=== PATIENT | female | born 1955 | race Caucasian/White ===

== ENCOUNTER 2020-10-30 15:52 | Outpatient (REF) | payer SELFPAY ==
[2020-10-30 22:11] LABS: ALT 31 U/L (14-59); AST 23 U/L (15-37); Albumin 4.3 g/dL (3.4-5.0); Alkaline Phosphatase 104 U/L (46-116); Anion Gap 10.8 mmol/L (3-11); BUN 8 mg/dL (7-18); Bilirubin, Total 1.1 mg/dL (0.2-1.0); CO2 29.2 mmol/L (21.0-32.0); CREATININE 0.7 mg/dL (0.55-1.02); Calcium 9.5 mg/dL (8.5-10.1); Calculated LDL 129 mg/dL (<100); Chloride 99 mmol/L (98-107); Cholesterol 228 mg/dL (<200); Glucose 106 mg/dL (74-106); HDL Cholesterol 85 mg/dL (40-60); Potassium 3.8 mmol/L (3.5-5.1); Sodium 139 mmol/L (136-145); Total Protein 7.3 g/dL (6.4-8.2); Triglyceride 72 mg/dL (<150)
[2020-10-30 22:18] LABS: COMMENT (LAB VIEW ONLY) 54.84 mg/dL; Microalb ug/mg Crea 10.8 ug/mg Cr
[2020-11-01 11:22] LABS: Hepatitis C Ab w Rflx HCV PCR Negative (Negative)
[2020-11-01 14:13] LABS: HIV-1/2 Ag & Ab Screen Negative (Negative)
== END 2020-10-30 15:53 | disposition home or self-care (01) ==
LOC: NCHCN 15:52
PROVIDERS: Visit Provider Nurse Practitioner Family
DX: I10 Essential (primary) hypertension (principal); R94.5 Abnormal results of liver function studies; Z11.4 Encounter for screening for human immunodeficiency virus [HIV]; Z11.59 Encounter for screening for other viral diseases
CPT/HCPCS: 80053; 80061; 86803; 87389; 82043; 82570

== ENCOUNTER 2020-11-19 09:40 | Outpatient (REF) | payer OTHER, SELFPAY ==
--- NOTE | 2020-11-19 08:30 | PAPFT_PTH ---
PATIENT: Oma Simmonsecca Shantell LOC: [facility]#:[id number] AGE/SX: 65/F ROOM: RE11/19/[address]: Ondina Sandy : 1955 BED: DIS: 11/19/2020 SPEC #: [id number] RECD: 11/19/20 16:18 STATUS: TE REQ #: [id number] JOSH: 11/19/20 08:[address]: Ondina Sandy DEPT: [facility] Cytology RECD BY: Francisca Briceno Tissues: 1 - CX/ENDOCX FOR PAP SMEARS Procedures: PAP THIN PREP/[facility] Screening HPV DNA PROBE Comments: [id number]
[2020-11-19 14:04] LABS: Anion Gap 7.5 mmol/L (3-11); BUN 9 mg/dL (7-18); CO2 34.5 mmol/L (21.0-32.0); CREATININE 0.7 mg/dL (0.55-1.02); Calcium 9.3 mg/dL (8.5-10.1); Chloride 99 mmol/L (98-107); Glucose 110 mg/dL (74-106); Potassium 3.3 mmol/L (3.5-5.1); Sodium 141 mmol/L (136-145)
== END 2020-11-19 09:41 | disposition home or self-care (01) ==
LOC: NCHCN 09:40
PROVIDERS: Referring Provider Nurse Practitioner Family; Visit Provider Nurse Practitioner Family
DX: Z12.4 Encounter for screening for malignant neoplasm of cervix (principal); I10 Essential (primary) hypertension; Z11.51 Encounter for screening for human papillomavirus (HPV)
CPT/HCPCS: 80048; 88142; 87624

== ENCOUNTER 2022-03-16 14:52 | Outpatient (REF) | payer OTHER, SELFPAY ==
[2022-03-16 21:42] LABS: ALT 72 U/L (14-59); AST 84 U/L (15-37); Albumin 4.4 g/dL (3.4-5.0); Alkaline Phosphatase 105 U/L (46-116); Anion Gap 9.5 mmol/L (3-11); BUN 8 mg/dL (7-18); Bilirubin, Total 0.7 mg/dL (0.2-1.0); CO2 32.5 mmol/L (21.0-32.0); CREATININE 0.7 mg/dL (0.55-1.02); Calcium 9.8 mg/dL (8.5-10.1); Calculated LDL 154 mg/dL (<100); Chloride 95 mmol/L (98-107); Cholesterol 272 mg/dL (<200); Estimated GFR 96.52 (mL/min/1.73m2); Glucose 119 mg/dL (74-106); HDL Cholesterol 104 mg/dL (40-60); Potassium 3.8 mmol/L (3.5-5.1); Sodium 137 mmol/L (136-145); Total Protein 7.9 g/dL (6.4-8.2); Triglyceride 71 mg/dL (<150)
== END 2022-03-16 14:53 | disposition home or self-care (01) ==
LOC: NCHCN 14:52
PROVIDERS: PCP Nurse Practitioner Family; Visit Provider Nurse Practitioner Family
DX: I10 Essential (primary) hypertension (principal); F10.99 Alcohol use, unspecified with unspecified alcohol-induced disorder
CPT/HCPCS: 80053; 80061

== ENCOUNTER 2023-05-05 18:17 | Outpatient (REF) | payer MEDICARE, SELFPAY ==
[2023-05-05 21:02] LABS: HGB 13.6 g/dL (11.2-15.7); MCH 30.9 pg (27.0-33.0); MCHC 34.9 % (32.0-36.0); MCV 89 fL (80-95); Platelet Count 261 10^3/uL (130-400); RDW 12.6 % (11.7-14.6)
[2023-05-05 21:32] LABS: ALT 145 U/L (14-59); AST 145 U/L (15-37); Albumin 3.9 g/dL (3.4-5.0); Alkaline Phosphatase 107 U/L (46-116); Anion Gap 12.6 mmol/L (3-11); BUN 7 mg/dL (7-18); CO2 29.4 mmol/L (21.0-32.0); CREATININE 0.9 mg/dL (0.55-1.02); Calcium 9.7 mg/dL (8.5-10.1); Calculated LDL 101 mg/dL (<100); Chloride 91 mmol/L (98-107); Cholesterol 200 mg/dL (<200); Estimated GFR 70.95 (mL/min/1.73m2); Glucose 123 mg/dL (74-106); HDL Cholesterol 86 mg/dL (40-60); Sodium 133 mmol/L (136-145); Total Protein 7.1 g/dL (6.4-8.2); Triglyceride 66 mg/dL (<150)
[2023-05-05 21:40] LABS: Potassium 2.6 mmol/L (3.5-5.1)
== END 2023-05-05 18:18 | disposition home or self-care (01) ==
LOC: NCHCN 18:17
PROVIDERS: PCP Nurse Practitioner Family; Visit Provider Nurse Practitioner Family
DX: I10 Essential (primary) hypertension (principal); R79.89 Other specified abnormal findings of blood chemistry
CPT/HCPCS: 80053; 80061; 85027

== ENCOUNTER 2023-05-06 13:30 | Outpatient (REF) | payer MEDICARE, SELFPAY ==
[2023-05-06 14:27] LABS: Anion Gap 11.2 mmol/L (3-11); BUN 8 mg/dL (7-18); CO2 30.8 mmol/L (21.0-32.0); CREATININE 0.9 mg/dL (0.55-1.02); Calcium 9.4 mg/dL (8.5-10.1); Chloride 93 mmol/L (98-107); Estimated GFR 70.95 (mL/min/1.73m2); Glucose 151 mg/dL (74-106); Sodium 135 mmol/L (136-145)
[2023-05-06 14:34] LABS: Potassium 2.4 mmol/L (3.5-5.1)
[2023-05-06 15:01] LABS: Magnesium 1.7 mg/dL (1.8-2.4)
== END 2023-05-06 13:31 | disposition home or self-care (01) ==
LOC: NCHCN 13:30
PROVIDERS: PCP Nurse Practitioner Family; Referring Provider Nurse Practitioner Family; Visit Provider Nurse Practitioner Family
DX: E87.6 Hypokalemia (principal)
CPT/HCPCS: 80048; 83735

== ENCOUNTER 2023-06-28 18:06 | Outpatient (REF) | payer MEDICARE, SELFPAY ==
[2023-06-28 22:12] LABS: ALT 27 U/L (14-59); AST 30 U/L (15-37); Alkaline Phosphatase 90 U/L (46-116); Anion Gap 14.3 mmol/L (3-11); BUN 7 mg/dL (7-18); Bilirubin, Total 1.1 mg/dL (0.2-1.0); CO2 23.7 mmol/L (21.0-32.0); CREATININE 0.5 mg/dL (0.55-1.02); Calcium 9.2 mg/dL (8.5-10.1); Calculated LDL 137 mg/dL (<100); Chloride 99 mmol/L (98-107); Cholesterol 279 mg/dL (<200); Estimated GFR 104.02 (mL/min/1.73m2); Glucose 80 mg/dL (74-106); HDL Cholesterol 129 mg/dL (40-60); Magnesium 1.5 mg/dL (1.8-2.4); Potassium 3.5 mmol/L (3.5-5.1); Sodium 137 mmol/L (136-145); TSH 2.72 uIU/Ml (0.36-3.74); Total Protein 6.8 g/dL (6.4-8.2); Triglyceride 67 mg/dL (<150); Vitamin B12 286 pg/mL (193-986)
[2023-06-30 09:18] LABS: Syphilis Serology (RPR) Negative (Negative)
== END 2023-06-28 18:07 | disposition home or self-care (01) ==
LOC: NCHCN 18:06
PROVIDERS: PCP Nurse Practitioner Family; Visit Provider Nurse Practitioner Family
DX: I10 Essential (primary) hypertension (principal); R41.3 Other amnesia
CPT/HCPCS: 80053; 80061; 82607; 82746; 83735; 84443; 86592

== ENCOUNTER 2024-05-10 14:26 | Outpatient (REF) | payer MEDICARE, SELFPAY ==
[2024-05-10 22:07] LABS: Anion Gap 11.8 mmol/L (3-11); BUN 10 mg/dL (7-18); CO2 27.2 mmol/L (21.0-32.0); CREATININE 0.7 mg/dL (0.55-1.02); Chloride 99 mmol/L (98-107); Estimated GFR 95.32 (mL/min/1.73m2); Glucose 156 mg/dL (74-106); Potassium 3.6 mmol/L (3.5-5.1); Sodium 138 mmol/L (136-145)
== END 2024-05-10 14:27 | disposition home or self-care (01) ==
LOC: NCHCN 14:26
PROVIDERS: PCP Nurse Practitioner Family; Visit Provider Nurse Practitioner Family
DX: I10 Essential (primary) hypertension (principal)
CPT/HCPCS: 80048

== ENCOUNTER 2024-06-21 18:49 | Outpatient (REF) | payer MEDICARE, SELFPAY ==
[2024-06-21 22:28] LABS: ALT 30 U/L (14-59); AST 28 U/L (15-37); Alkaline Phosphatase 103 U/L (46-116); BUN 17 mg/dL (7-18); Bilirubin, Total 0.6 mg/dL (0.2-1.0); CREATININE 0.8 mg/dL (0.55-1.02); Calcium 10.1 mg/dL (8.5-10.1); Chloride 103 mmol/L (98-107); Estimated GFR 81.21 (mL/min/1.73m2); Glucose 110 mg/dL (74-106); Potassium 4.5 mmol/L (3.5-5.1); Sodium 141 mmol/L (136-145); Total Protein 7.3 g/dL (6.4-8.2)
== END 2024-06-21 18:50 | disposition home or self-care (01) ==
LOC: NCHCN 18:49
PROVIDERS: PCP Nurse Practitioner Family; Visit Provider Nurse Practitioner Family
DX: I10 Essential (primary) hypertension (principal)
CPT/HCPCS: 80053